=== PATIENT | male | born 2000 | race Caucasian/White ===

== ENCOUNTER 2021-05-16 03:49 | Observation (INO) | payer BC ==
[2021-05-16 05:08] LABS: ALT (SGPT) 12 U/L (8-55); AST (SGOT) 18 U/L (5-34); Albumin 4.6 g/dL (3.5-5.0); Alkaline Phosphatase 46 U/L (40-110); Anion Gap 11 mmol/L (10-20); BUN (Urea Nitrogen) 11 mg/dL (8.9-20.6); Bilirubin, Total 0.4 mg/dL (0.2-1.2); Calc. Creatinine Clearance 0 mL/min (70-130); Carbon Dioxide 28 mmol/L (22-29); Chloride 104 mmol/L (98-107); Globulin 2.1 g/dL (2.4-3.5); Glucose 97 mg/dL (70-105); Potassium 3.6 mmol/L (3.5-5.1); Protein, Total 6.7 g/dL (6.0-8.3); Sodium 139 mmol/L (136-145)
[2021-05-16 05:33] LABS: #Eosinphils 0.2 10x3/uL (0.0-0.5); #Monocytes 0.6 10x3/uL (0.0-1.1); #Neutrophils 3.9 10x3/uL (1.5-8.4); %Basophils 0.6 % (0.0-2.0); %Eosinophils 2.3 % (0.0-6.0); %Lymphocytes 28.2 % (18.0-47.0); %Monocytes 9.4 % (0.0-10.0); %Neutrophils 59.3 % (40.0-75.0); Hemoglobin 13.2 g/dL (13.5-17.5); Mean Corpuscular HGB CONC 34.5 g/dL (32.0-36.0); Mean Corpuscular Hemoglobin 28.9 pg (27.0-33.0); Mean Platelet Volume 11.5 fl (7.4-10.4); Platelet Count 203 10x3/uL (150-450); RBC Distribution Width 12.4 % (11.5-14.5); Red Blood Cell (RBC) Count 4.56 10x6/uL (4.32-5.72); White Blood Cell (WBC) Count 6.5 10x3/uL (3.5-10.5)
[2021-05-16 07:29] LABS: SARS-CoV-2 NAA Rapid Test Not Detected (NotDetected)
[2021-05-16] MEDS ORDERED: Ondansetron ODT 4 MG TAB PO PRN (08:13)
[2021-05-16] MEDS ORDERED: Acetaminophen 325 MG TAB PO PRN (08:13)
[2021-05-16 08:58] LABS: Lactic Acid 0.8 mmol/L (0.5-2.2)
[2021-05-16 09:03] LABS: CK (CPK) 80 U/L (30-200); Magnesium 1.9 mg/dL (1.6-2.6)
[2021-05-16 13:47] VITALS: BMI 19.6
[2021-05-16 15:09] VITALS: BP 109/65
[2021-05-16 16:10] VITALS: TEMP 99
== END 2021-05-16 18:19 | disposition home or self-care (01) ==
LOC: SUATTDRO 03:49 → CSHERS 03:49 → CSHTELE 11:18
PROVIDERS: ADMIT Family Medicine; ATTEND Family Medicine
DX: R55 Syncope and collapse (principal); R00.1 Bradycardia, unspecified; F41.9 Anxiety disorder, unspecified; F32.A Depression, unspecified; F12.90 Cannabis use, unspecified, uncomplicated; Z79.899 Other long term (current) drug therapy; Z20.822 Contact with and (suspected) exposure to COVID-19
CPT/HCPCS: 36415; 70450; 71045; 80053; 82550; 83605; 83735; 84146; 84443; 84484; 85025; 93005; 93306; G0378; U0002